=== PATIENT | female | born 1995 | race Caucasian/White ===

== ENCOUNTER 2023-03-01 12:05 | Emergency (ER) | payer OTHER, SELFPAY ==
--- NOTE | ~2023-03-01 | XR_ITS ---
XR finger 5th RT min 2V DATE: 03/01/2023 12:41 INDICATION: Pinched injury of distal fifth digit TECHNIQUE: 3 views of fifth digit COMPARISON: None FINDINGS: No fracture or dislocation, periosteal reaction or bone destruction. Joint spaces are prese rved. No erosive change. No radiopaque soft tissue foreign body or subcutaneous emphysema. IMPRESSION: Negative Reviewed, dictated and finalized at location A. 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
[2023-03-01 12:06] VITALS: BP 114/75; PULSE 65; RESP 18; TEMP 36.6; O2SAT 100
--- NOTE | 2023-03-01 12:47 | ED.GENADULT ---
HPI - General Adult General Chief complaint: Extremity Injury, Upper Stated complaint: smashed finger Time Seen by Provider: 03/01/23 12:19 Source: patient Mode of arrival: ambulatory Limitations: no limitations History of Present Illness HPI narrative: This is a 27-year-old female who presents to the ED with chief complaint of a right pinky finger injury while moving boxes at work today. Reports that the finger was accidentally smashed. There was some bleeding prior to arrival but this has stopped with Band-Aids. Denies any further sites of pain or injury. Related Data Home Medications Medication Instructions Recorded Confirmed No Home Medications 03/01/23 03/01/23 Allergies Allergy/AdvReac Type Severity Reaction Status Date / Time No Known Allergies Allergy Verified 03/01/23 12:21 Review of Systems Review of Systems: All systems as dictated in HPI Exam Narrative: GENERAL: Well-appearing, well-nourished, and in no acute distress. HEAD: Normocephalic, atraumatic. EYES: PERRLA and EOMI. ENT: Nares clear, no rhinorrhea or epistaxis. Mucous membranes moist. Oropharynx without tonsillar hypertrophy exudate or other lesions. NECK: Supple. No adenopathy or masses. CHEST: No respiratory distress. Clear to auscultation. No wheezes rales or rhonchi HEART: Regular rate and rhythm. No murmur heard. Normal peripheral pulses. ABDOMEN: Soft, nontender, nondistended, normal active bowel sounds. MSK: moderate tenderness to the distal most portion of the right pinky. No bruising or crepitus. Neurovascularly intact. Normal range of motion. No edema. SKIN: minor abrasion to the distal pain right 5th finger. NEURO: Alert and oriented x3. No focal deficits. PSYCH: Normal mood and affect. Course Vital Signs Vital signs: Vital Signs Temperature 97.8 F 03/01/23 12:06 Pulse Rate 65 03/01/23 12:06 Respiratory Rate 18 03/01/23 12:06 Blood Pressure 114/75 03/01/23 12:06 Pulse Oximetry 100 03/01/23 12:06 Oxygen Delivery Room Air 03/01/23 12:06 Temperature 97.8 F 03/01/23 12:06 Pulse Rate 65 03/01/23 12:06 Respiratory Rate 18 03/01/23 12:06 Blood Pressure 114/75 03/01/23 12:06 Pulse Oximetry 100 03/01/23 12:06 Oxygen Delivery Room Air 03/01/23 12:06 Medical Decision Making [facility] Narrative Medical decision making narrative: This is a 26-year-old male who presents to the ED with chief complaint of work related injury, smashed her right pinky. Vitals are normal. Exam is largely benign. There is minimal tenderness to the distal pinky. X-ray of the right hand negative for fracture. Pt will be discharged in stable condition. Return precautions given and supportive measures discussed. Pt is understanding and agreeable with plan for discharge and follow-up with PCP. Vital Signs Vital Signs: Vital Signs Temperature 97.8 F 03/01/23 12:06 Pulse Rate 65 03/01/23 12:06 Respiratory Rate 18 03/01/23 12:06 Blood Pressure 114/75 03/01/23 12:06 Pulse Oximetry 100 03/01/23 12:06 Oxygen Delivery Room Air 03/01/23 12:06 Temperature 97.8 F 03/01/23 12:06 Pulse Rate 65 03/01/23 12:06 Respiratory Rate 18 03/01/23 12:06 Blood Pressure 114/75 03/01/23 12:06 Pulse Oximetry 100 03/01/23 12:06 Oxygen Delivery Room Air 03/01/23 12:06 Discharge Plan Discharge Clinical Impression: Contusion of finger Patient Disposition: Home, Self-Care Condition: Stable Instructions: Antibiotic Form Additional Instructions: your exam and imaging are reassuring today. No evidence of any fracture. Please take regular Tylenol and ibuprofen. If you have any new or worsening symptoms please return to the ER for further evaluation. Prescriptions: No Action No Home Medications Follow-up/Referrals: PHYSICIAN,FORESTRY HUNTER [Primary Care Provider] - Stand Alone Forms: Work/School Release IP Time of Disposition:
== END 2023-03-01 13:18 | disposition home or self-care (01) ==
LOC: ANHED 13:14
PROVIDERS: Emergency Provider Physician Assistant
DX: S60.051A Contusion of right little finger without damage to nail, initial encounter (principal); W23.0XXA Caught, crushed, jammed, or pinched between moving objects, initial encounter
CPT/HCPCS: 73140; 99283

== ENCOUNTER 2023-03-22 15:02 | Emergency (ER) | payer SELFPAY ==
--- NOTE | ~2023-03-22 | XR_ITS ---
Left ankle Technique: AP, oblique, and lateral views were obtained. Clinical History: Injury Findings: No acute fracture or dislocation is seen. Osseous alignment is anatomic. Ankle mortise and other visualized joint spaces are preserved. Soft tissues are otherwise unremarkable. Impression: Unremarkable left ankle. 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
[2023-03-22 15:03] VITALS: BP 108/64; PULSE 96; RESP 16; TEMP 37.1; O2SAT 99
--- NOTE | 2023-03-22 18:25 | ED.WOUNDLAC ---
HPI - Wound/Laceration General Chief Complaint: Wound/Laceration Stated Complaint: L ANKLE INJURY Time Seen by Provider: 03/22/23 17:46 History of Present Illness HPI narrative: 27-year-old female reports for evaluation for laceration to her left ankle that occurred at 11:45 a.m. today. Patient states she was at work when a cage accidentally hit the side of her ankle and cut her ankle. Bleeding is controlled. Tetanus is up-to-date. Denies other injuries acquired. Related Data Home Medications Medication Instructions Recorded Confirmed No Home Medications 03/01/23 03/01/23 Allergies Allergy/AdvReac Type Severity Reaction Status Date / Time No Known Allergies Allergy Verified 03/01/23 12:21 Review of Systems Review of Systems: CONSTITUTIONAL: Denies fever, chills, or sweats. EYES: Denies visual changes, redness, or discharge. ENT: Denies rhinorrhea, congestion, sore throat, or otalgia. CARDIOVASCULAR: Denies chest pain, palpitations, or edema. RESPIRATORY: Denies cough or dyspnea. GASTROINTESTINAL: Denies abdominal pain, nausea, vomiting, or diarrhea. GENITOURINARY: Denies dysuria or hematuria. SKIN: See HPI MUSCULOSKELETAL: Denies back pain, joint pain, or myalgia. NEUROLOGIC: Denies headache, numbness, or weakness. PSYCHIATRIC: Denies anxiety or depression. Exam Narrative: GENERAL: Well-appearing, well-nourished, and in no acute distress. HEAD: Normocephalic, atraumatic. NECK: Supple. CHEST: Clear to auscultation. No respiratory distress. HEART: Regular rate and rhythm. No murmur heard. Normal peripheral pulses. EXTREMITIES: Normal range of motion. No edema. SKIN: 2 cm linear laceration to the lateral malleolus without deep structures or foreign bodies visualized. Full range of motion of ankle and toes. DP pulse 2 +. Sensation intact. Cap refill less than 2. No bony tenderness. NEURO: No focal deficits. Alert and oriented x3 Course Vital Signs Vital signs: Vital Signs Temperature 98.8 F 03/22/23 15:03 Pulse Rate 96 03/22/23 15:03 Respiratory Rate 16 03/22/23 15:03 Blood Pressure 108/64 03/22/23 15:03 Pulse Oximetry 99 03/22/23 15:03 Oxygen Delivery Room Air 03/22/23 15:03 Temperature 98.8 F 03/22/23 15:03 Pulse Rate 96 03/22/23 15:03 Respiratory Rate 16 03/22/23 15:03 Blood Pressure 108/64 03/22/23 15:03 Pulse Oximetry 99 03/22/23 15:03 Oxygen Delivery Room Air 03/22/23 15:03 Procedures Laceration Laceration 1: Date: 03/22/23 Time: 18:47 Site: lower extremity Side (If applicable): left Size (cm): 2 Description: linear Depth: simple, single layer Local Anesthetic: lidocaine 1% and with epi Amount of anesthesia used (mL): 3 Pre-repair: wound explored, irrigated and irrigated extensively ====== Skin Level ====== Skin layer closed with: nylon Size (cm): 4-0 Number of sutures: 2 Technique: simple, interrupted ====== Subcutaneous Layer ====== ====== Muscle Layer ====== ====== Tendon Layer ====== MDM - Wound/Laceration [facility] Narrative Medical decision making narrative: 27-year-old female reports for laceration to her left lateral malleolus that occurred today at 11:45 a.m.. See HPI for further history. Vitals are stable. Tetanus is up-to-date. Exam shows no evidence of deep structures or foreign bodies. Bleeding is controlled. Wound irrigated extensively with normal saline. 2 sutures applied without complications. Bandage and postop shoe applied. Discussed suture removal in 7 days, Tylenol ibuprofen for pain and strict ED return precautions. Patient is agreeable to plan verbalized understanding. Discharged in stable condition. Discharge Plan Discharge Clinical Impression: Laceration Patient Disposition: Home, Self-Care Condition: Stable Instructions: Antibiotic Form Additional Instructions:
== END 2023-03-22 20:12 | disposition home or self-care (01) ==
LOC: ANHED 19:02
PROVIDERS: Emergency Provider Physician Assistant; PCP Family Medicine
DX: S91.012A Laceration without foreign body, left ankle, initial encounter (principal); W26.8XXA Contact with other sharp object(s), not elsewhere classified, initial encounter; Y99.0 Civilian activity done for income or pay
CPT/HCPCS: 12001; 73610; 99283

== ENCOUNTER 2023-03-29 01:17 | Emergency (ER) | payer OTHER, SELFPAY ==
--- NOTE | ~2023-03-29 | CT_ITS ---
EXAMINATION: CT LE LT w con DATE: 03/29/2023 08:09 INDICATION: Left calf pain TECHNIQUE: High resolution computed tomography (CT) of the left lower leg from the knee through the f oot was performed with 100 mL Omnipaque-350 intravenous contrast. Additional sagittal and coronal rec onstructions were performed. Automated exposure control and iterative reconstruction technique were e mployed. The dose-length product was 1211.85 mGy-cm. COMPARISON: Left ankle radiographs dated 03/22/2023 FINDINGS: Bone alignment is normal. No fracture. Joint spaces are relatively preserved throughout. No cortical erosions or periosteal reaction. Physiologic amount fluid in the joint space with no joint effusions. There is mild soft tissue swelling with subcutaneous edema overlying the left lateral malleolus and extending over the dorsum of the foot. No radiopaque foreign bodies, abscess or soft tissue gas. IMPRESSION: 1. Swelling and prominent subcutaneous edema overlying the left lateral malleolus with no abscess, ra diopaque foreign body or soft tissue gas. Reviewed, dictated and finalized at location A. [employer] COMPOSING ROOM IMPRESSION: 1. Swelling and prominent subcutaneous edema overlying the left lateral malleol us with no abscess, radiopaque foreign body or soft tissue gas.
[2023-03-29 01:19] VITALS: BP 124/69; PULSE 93; RESP 16; TEMP 36.4; O2SAT 99
[2023-03-29 04:43] VITALS: BP 108/72; PULSE 90; RESP 14; TEMP 36.6; O2SAT 100
--- NOTE | 2023-03-29 05:41 | PC.NURSE ---
Patient stated that her foot pain was getting worse. Patient was brought back to triage area where patient had PMS, however her cap refill on her toes was greater than two seconds (roughly 4-5 seconds). EDCN notified. Patient taken back to room 4.
[2023-03-29] MEDS: SODIUM CHLORIDE 0.9% IV 1,000 ML 999 ML IV CONT (05:52)
[2023-03-29] MEDS: HYDROmorphone HCL INJ (*CRX) 1 MG/ML SYR 0.5 MG IV PUSH (05:52)
[2023-03-29 05:59] LABS: Basophils Percent Auto 0.5 % (0.2-1.2); Eosinophils Absolute Auto 0.1 K/mm3 (0-0.3); Eosinophils Percent Auto 1.6 % (0-4.4); Hematocrit 39.1 % (37.0-47.0); Hemoglobin 12.5 g/dL (12.0-15.0); Immature Granulocyte Absolute 0.02 K/mm3 (0.00-0.031); Immature Granulocyte Percent A 0.2 % (0-0.5); Immature Platelet Fraction Pct 8.2 % (0.9-11.2); Lymphocytes Absolute Auto 1.34 K/mm3 (0.9-3.2); Lymphocytes Percent Auto 15.5 % (18.3-44.2); Mean Corpuscular Hemoglobin 28.8 pg (26-34); Mean Corpuscular Volume 90.1 fl (80-100); Monocytes Absolute Auto 0.6 K/mm3 (0.1-0.6); Monocytes Percent Auto 6.7 % (2.6-8.5); Neutrophils Absolute Auto 6.5 K/mm3 (1.3-6.7); Neutrophils Percent Auto 75.5 % (45.5-73.1); Red Blood Count 4.34 M/mm3 (4.2-5.4); Red Cell Distribution Width 14.5 % (11.5-14.5); White Blood Count 8.6 K/mm3 (4.5-10.0)
[2023-03-29 06:06] LABS: Lactic Acid Reflex 1.7 mmol/L (0.7-2.0)
--- NOTE | 2023-03-29 07:58 | ED.GENADULT ---
HPI - General Adult General Chief complaint: Unspecified Stated complaint: here to get stiches removed Time Seen by Provider: 03/29/23 07:46 History of Present Illness HPI narrative: Patient is a 27-year-old female who presents to the emergency department this morning for suture removals. Patient had a work injury approximately 1 week ago where she lacerated her left foot along the lateral/posterior at age. Patient presented here and had sutures placed, a total of 2 sutures were placed. Patient was informed that she needs to return in 1 week to have her sutures removed. Denies any redness or drainage around the area, patient admits to mild swelling and tenderness. She denies any fevers or chills at home. Patient denies any additional symptoms including chest pain, shortness of breath, nausea vomiting, abdominal pain, dysuria hematuria, constipation, diarrhea, melena and hematochezia. There are no other modifying, alleviating, or precipitating factors at this time. Related Data Home Medications Medication Instructions Recorded Confirmed No Home Medications 03/01/23 03/01/23 Allergies Allergy/AdvReac Type Severity Reaction Status Date / Time No Known Allergies Allergy Verified 03/01/23 12:21 Review of Systems Review of Systems: All systems are reviewed and are negative unless stated otherwise in the HPI. PMFSH Comments Denies any significant past medical or surgical history, denies any family history. Denies any alcohol abuse, tobacco use or illicit drug use. Exam Narrative: General: Alert, awake, afebrile, in no acute distress. HEENT: PERRL, no rhinorrhea, no post nasal drip, oropharynx clear. Neck: Trachea midline, no JVD, no lymphadenopathy. Cardiovascular: Regular rate and rhythm, no murmurs, rubs or gallops, no peripheral edema. Respiratory: Clear to auscultation bilaterally, no tachypnea, no wheezing, no rhonchi, no rubs, no respiratory distress. Abdomen: Soft, nontender, nondistended, no rebound, no guarding, no peritoneal signs. Musculoskeletal: 2 cm laceration to the posterior/lateral aspect of the right foot, no surrounding erythema or any evidence of infection, mild swelling to the left foot with tenderness to palpation around the lateral malleoli and midfoot. Skin: No rashes or petechia, no signs of infection. Psychiatric: Alert and oriented, normal behavior and judgment for situation. Neurological: Alert and oriented to person, place, and time. Follows all commands. No focal deficits, speech is clear and fluent. Course Vital Signs Vital signs: Vital Signs Temperature 97.5 F L 03/29/23 01:19 Pulse Rate 93 03/29/23 01:19 Respiratory Rate 16 03/29/23 01:19 Blood Pressure 124/69 03/29/23 01:19 Pulse Oximetry 99 03/29/23 01:19 Oxygen Delivery Room Air 03/29/23 01:19 Temperature 98 F 03/29/23 04:43 Pulse Rate 90 03/29/23 04:43 Respiratory Rate 14 03/29/23 04:43 Blood Pressure 108/72 03/29/23 04:43 Pulse Oximetry 100 03/29/23 04:43 Oxygen Delivery Room Air 03/29/23 01:19 Medical Decision Making MDM Narrative Medical decision making narrative: The patient was evaluated by myself in the emergency department. History is obtained from patient who is an independent historian and physical exam was performed. External medical records were reviewed at this time. IV was established and pertinent tests were ordered. Patient admits that her tetanus is up-to-date. Laboratory results obtained revealing no acute process. Imaging studies obtained included CT left lower extremity with IV contrast which was independently interpreted by me revealing soft tissue swelling, no evidence of gas or foreign bodies, which is pending final radiology interpretation. Patient's left foot was wrapped in an Bairon wrap for comfort. Differential diagnosis considerations include infection vs retained foreign body. Comorbidities impacting this visit include none. I have
[2023-03-29 08:05] LABS: Estimated CRCL calculation 122 ml/min; Estimated Glomerular Filt Rate > 60
[2023-03-29 08:12] LABS: Alanine Aminotransferase 10 U/L (6-35); Albumin Level 3.7 g/dL (3.5-5.1); Alkaline Phosphatase 71 U/L (38-126); Anion Gap 5 mmol/L (8-16); Aspartate Amino Transferase 16 U/L (14-36); Bilirubin,Total 0.3 mg/dL (0.2-1.3); Blood Urea Nitrogen 9 mg/dL (7-17); Calcium 8.4 mg/dL (8.4-10.2); Carbon Dioxide 25 mmol/L (22-30); Chloride 107 mmol/L (98-107); Creatine Kinase 44 U/L (30-135); Estimated CRCL calculation 122 ml/min; Estimated Glomerular Filt Rate > 60; Glucose 98 mg/dL (65-110); Potassium 3.9 mmol/L (3.4-5.0); Sodium 137 mmol/L (137-145)
[2023-03-29 09:17] VITALS: BP 122/74; PULSE 80; RESP 16; O2SAT 98
== END 2023-03-29 09:19 | disposition home or self-care (01) ==
PROVIDERS: Emergency Medicine; Emergency Provider Emergency Medicine; PCP Family Medicine
DX: S91.312D Laceration without foreign body, left foot, subsequent encounter (principal); X58.XXXD Exposure to other specified factors, subsequent encounter
CPT/HCPCS: 15853; 36415; 73701; 80053; 82550; 83605; 85025; 85055; 96361; 96374; 99284; J1170; J7030; Q9967